=== PATIENT | female | born 2000 | race Two or more races ===

== ENCOUNTER 2020-12-30 19:58 | Emergency (ER) | payer MEDICAID, OTHER ==
[~2020-12-30] VITALS: Ht 157.5 cm; Wt 54.4 kg
[2020-12-30 19:58] VITALS: BP 120/76
[2020-12-30] MEDS ORDERED: IBUPROFEN 800 MG TAB PO ONE (21:00)
[2020-12-30] MEDS ORDERED: METHOCARBAMOL 500 MG TAB PO ONE (21:00)
== END 2020-12-30 22:45 | disposition home or self-care (01) ==
LOC: ER 20:00
DX: S13.4XXA Sprain of ligaments of cervical spine, initial encounter (principal); S09.8XXA Other specified injuries of head, initial encounter; R51.9 Headache, unspecified; V49.59XA Passenger injured in collision with other motor vehicles in traffic accident, initial encounter; Y93.89 Activity, other specified; Y92.488 Other paved roadways as the place of occurrence of the external cause; Y99.8 Other external cause status
CPT/HCPCS: 70486; 72040